=== PATIENT | male | born 1970 | race Caucasian/White ===

== ENCOUNTER 2018-06-02 02:48 | Emergency (ER) | payer OTHER ==
[~2018-06-02] VITALS: Ht 185.4 cm; Wt 108.9 kg
[2018-06-02] MEDS ORDERED: LIDO700A20 TOP (03:56)
[2018-06-02] MEDS ORDERED: Naprosyn500 MG PO (03:56)
[2018-06-02] MEDS ORDERED: Percocet 5-3251 EACH PO (03:56)
== END 2018-06-02 04:20 | disposition home or self-care (01) ==
LOC: ER 02:48
DX: S39.012A Strain of muscle, fascia and tendon of lower back, initial encounter (principal); M54.16 Radiculopathy, lumbar region; X58.XXXA Exposure to other specified factors, initial encounter
CPT/HCPCS: 82947; 96372; 99283; J1885

== ENCOUNTER 2022-02-05 16:07 | Emergency (ER) | payer OTHER ==
[~2022-02-05] VITALS: Ht 185.4 cm; Wt 106.6 kg
[~2022-02-05 16:07] MED LIST: LIDO700A20 TOP; Naprosyn500 MG PO; Percocet 5-3251 EACH PO
== END 2022-02-05 19:19 | disposition home or self-care (01) ==
LOC: ER 16:07
DX: S06.0X0A Concussion without loss of consciousness, initial encounter (principal); W22.8XXA Striking against or struck by other objects, initial encounter; Z79.899 Other long term (current) drug therapy
CPT/HCPCS: 70450; 96372; 99283-25; J1885

== ENCOUNTER 2022-05-26 10:08 | Emergency (ER) | payer OTHER ==
[~2022-05-26] VITALS: Ht 185.4 cm; Wt 99.8 kg
[2022-05-26] MEDS ORDERED: IBU800 M1 PO (10:50)
[2022-05-26] MEDS ORDERED: [UNRECOGNIZED DRUG - CODE] PO (10:50)
[2022-05-26] MEDS ORDERED: CYMBALTA20 M2 PO (10:50)
[2022-05-26] MEDS ORDERED: NEURONTIN300 MG PO (10:50)
[2022-05-26 17:54] LABS: BASOPHILS ABSOLUTE AUTO 0.05 K/mm3 (0.00-0.23); BASOPHILS PERCENT AUTO 1 % (0-2); EOSINOPHILS ABSOLUTE AUTO 0.13 K/mm3 (0.00-0.68); EOSINOPHILS PERCENT AUTO 2 % (0-6); Hematocrit 50.9 % (37.0-53.0); Hemoglobin 16.4 g/dL (13.5-17.5); IMMATURE GRAN ABSOLUTE AUTO 0.01 K/mm3 (0.00-0.10); IMMATURE GRAN PERCENT AUTO 0 % (0-1); LYMPHOCYTES ABSOLUTE AUTO 1.34 K/mm3 (0.84-5.20); LYMPHOCYTES PERCENT AUTO 23 % (21-46); MONOCYTES ABSOLUTE AUTO 0.46 K/mm3 (0.16-1.47); MONOCYTES PERCENT AUTO 8 % (4-13); Mean Corpuscular HGB Conc 32.2 g/dL (31.5-36.5); Mean Corpuscular Volume 96 fL (80-100); NEUTROPHILS ABSOLUTE AUTO 3.91 K/mm3 (1.96-9.15); NEUTROPHILS PERCENT AUTO 66 % (41-73); Platelet Count 260 K/mm3 (150-400); RDW Coefficient Variation 12.3 % (11.7-14.2); RDW Standard Deviation 44.1 fL (35.1-46.3); Red Blood Cell Count 5.29 M/mm3 (4.30-5.90)
[2022-05-26 17:58] LABS: Albumin, Blood 3.6 g/dL (3.4-5.0); Albumin/Globulin Ratio 0.9 (0.8-1.8); Bilirubin, Total 0.4 mg/dL (0.1-1.0); Bun/Creatinine Ratio 23.5 (12.0-20.0); Calcium, Blood 9.2 mg/dL (8.5-10.1); Creatinine, Blood 0.81 mg/dL (0.60-1.20); Potassium, Blood 4.2 mmol/L (3.5-5.5); Total Protein, Blood 7.6 g/dL (6.4-8.2)
[2022-08-06] MEDS ORDERED: HYDACE10B PO (11:56)
[2022-08-06] MEDS ORDERED: Robaxin750 MG PO (14:31)
[2022-08-06] MEDS ORDERED: Percocet 10-321 EACH PO (14:31)
== END 2022-05-26 18:00 | disposition short-term general hospital (02) ==
LOC: ER 10:08
PROVIDERS: Student in an Organized Health Care Education/Training Program
DX: M48.061 Spinal stenosis, lumbar region without neurogenic claudication (principal); E11.40 Type 2 diabetes mellitus with diabetic neuropathy, unspecified; Z79.899 Other long term (current) drug therapy; Z79.84 Long term (current) use of oral hypoglycemic drugs
CPT/HCPCS: 72146; 72148; 80053; 85025; 96374; 99285-25; A9270; J1170

== ENCOUNTER 2022-06-30 11:28 | Emergency (ER) | payer OTHER ==
[~2022-06-30] VITALS: Ht 185.4 cm; Wt 93.0 kg
[~2022-06-30 11:28] MED LIST changes: +CYMBALTA20 M2 PO; +IBU800 M1 PO; +NEURONTIN300 MG PO; +[UNRECOGNIZED DRUG - CODE] PO
[2022-06-30] MEDS ORDERED: OXYCODONE HCL PO (15:22)
== END 2022-06-30 15:31 | disposition home or self-care (01) ==
LOC: ER 11:28
DX: G89.18 Other acute postprocedural pain (principal); M79.604 Pain in right leg; Z79.84 Long term (current) use of oral hypoglycemic drugs
CPT/HCPCS: 72148

== ENCOUNTER 2025-03-27 14:53 | Emergency (ER) | payer OTHER ==
[~2025-03-27] VITALS: Ht 185.4 cm; Wt 95.2 kg
[~2025-03-27 14:53] MED LIST changes: +HYDACE10B PO; +OXYCODONE HCL PO; +Percocet 10-321 EACH PO; +Robaxin750 MG PO
[2025-03-27] MEDS ORDERED: OxyCODONE HCL 5 MG TAB PO ONE (16:15)
[2025-03-27] MEDS ORDERED: Acetaminophen 500 MG Tab PO ONE (16:15)
[2025-03-27] MEDS ORDERED: Ketorolac Tromethamine 15mg Vial IV ONE (16:15)
[2025-03-27] MEDS ORDERED: Gabapentin 300 MG Cap PO ONE (16:15)
[2025-03-27] MEDS ORDERED: Roxicodone5 MG PO ×2 (16:16→16:18)
[2025-03-27] MEDS ORDERED: Neurontin 300300 MG PO (16:16)
[2025-03-27 17:00] VITALS: BP 127/73
== END 2025-03-27 17:51 | disposition home or self-care (01) ==
LOC: ER 14:53
DX: M54.16 Radiculopathy, lumbar region (principal); R20.2 Paresthesia of skin
CPT/HCPCS: 96374; 99284-25; A9270; J1885